=== PATIENT | female | born 1930 | race Caucasian/White ===

== ENCOUNTER 2018-08-13 17:37 | Emergency (ER) | payer MEDICARE ==
[~2018-08-13] VITALS: Ht 162.6 cm; Wt 56.2 kg
[~2018-08-13 17:37] MED LIST: ALEN70; LEVSOD75 PO; LORA10ER PO; PENVK500 PO; PRED10 PO; PRED20 PO; RANI150 PO
[2018-08-13 18:42] LABS: BASOPHILS ABSOLUTE AUTO 0.03 K/mm3 (0.00-0.23); BASOPHILS PERCENT AUTO 1 % (0-2); EOSINOPHILS ABSOLUTE AUTO 0.05 K/mm3 (0.00-0.68); EOSINOPHILS PERCENT AUTO 1 % (0-6); Hematocrit 39.5 % (33.0-51.0); Hemoglobin 12.9 g/dL (11.5-16.0); IMMATURE GRAN ABSOLUTE AUTO 0.01 K/mm3 (0.00-0.10); IMMATURE GRAN PERCENT AUTO 0 % (0-1); LYMPHOCYTES ABSOLUTE AUTO 1.66 K/mm3 (0.84-5.20); LYMPHOCYTES PERCENT AUTO 30 % (21-46); MONOCYTES ABSOLUTE AUTO 0.75 K/mm3 (0.16-1.47); MONOCYTES PERCENT AUTO 14 % (4-13); Mean Corpuscular HGB 32.2 pg (26.0-34.0); Mean Corpuscular HGB Conc 32.7 g/dL (31.5-36.5); Mean Corpuscular Volume 99 fL (80-100); Mean Platelet Volume 9.7 fL (9.1-12.4); NEUTROPHILS ABSOLUTE AUTO 2.99 K/mm3 (1.96-9.15); NEUTROPHILS PERCENT AUTO 55 % (41-73); Platelet Count 195 K/mm3 (150-400); RDW Coefficient Variation 13.8 % (11.7-14.2); RDW Standard Deviation 50.4 fL (35.1-46.3); Red Blood Cell Count 4.01 M/mm3 (3.80-5.20); White Blood Cell Count 5.49 K/mm3 (4.00-11.30)
[2018-08-13 19:06] LABS: Alanine Aminotransfer (ALT/SGP 39 U/L (12-78); Albumin, Blood 3.9 g/dL (3.4-5.0); Albumin/Globulin Ratio 0.9 (0.8-1.8); Alk Phos 95 U/L (50-136); Anion Gap 6 mmol/L (6-16); Aspartate Aminotrans (AST/SGOT 33 U/L (12-37); Bilirubin, Total 0.6 mg/dL (0.1-1.0); Blood Urea Nitrogen 28 mg/dL (8-24); Bun/Creatinine Ratio 36.3 (12.0-20.0); CO2, Blood 28 mmol/L (21-32); Calcium, Blood 9.1 mg/dL (8.5-10.1); Chloride, Blood 101 mmol/L (98-108); Creatinine, Blood 0.77 mg/dL (0.40-1.00); Globulin, Blood 4.3 g/dL (2.2-4.0); Glomerular Filtration Rate >60 (60-); Glucose, Blood 96 mg/dL (70-99); Potassium, Blood 4.3 mmol/L (3.5-5.5); Sodium, Blood 135 mmol/L (136-145); Total Protein, Blood 8.2 g/dL (6.4-8.2)
== END 2018-08-13 21:11 | disposition home or self-care (01) ==
LOC: ER 17:37
PROVIDERS: Emergency Medicine
DX: R60.0 Localized edema (principal); E03.9 Hypothyroidism, unspecified; Z88.5 Allergy status to narcotic agent; Z91.018 Allergy to other foods; Z79.899 Other long term (current) drug therapy
CPT/HCPCS: 36415; 80053; 85025; 93971; 99284-25

== ENCOUNTER 2019-11-27 15:18 | Inpatient (IN) | payer MEDICARE ==
[~2019-11-27] VITALS: Ht 167.6 cm; Wt 46.6 kg
[2019-11-27 16:44] LABS: BASOPHILS ABSOLUTE AUTO 0.02 K/mm3 (0.00-0.23); BASOPHILS PERCENT AUTO 0 % (0-2); EOSINOPHILS ABSOLUTE AUTO 0.02 K/mm3 (0.00-0.68); EOSINOPHILS PERCENT AUTO 0 % (0-6); Hematocrit 37.8 % (33.0-51.0); Hemoglobin 12.3 g/dL (11.5-16.0); IMMATURE GRAN ABSOLUTE AUTO 0.03 K/mm3 (0.00-0.10); IMMATURE GRAN PERCENT AUTO 0 % (0-1); LYMPHOCYTES ABSOLUTE AUTO 0.81 K/mm3 (0.84-5.20); LYMPHOCYTES PERCENT AUTO 9 % (21-46); MONOCYTES ABSOLUTE AUTO 1.21 K/mm3 (0.16-1.47); MONOCYTES PERCENT AUTO 13 % (4-13); Mean Corpuscular HGB 31.7 pg (26.0-34.0); Mean Corpuscular HGB Conc 32.5 g/dL (31.5-36.5); Mean Corpuscular Volume 97 fL (80-100); Mean Platelet Volume 9.6 fL (9.1-12.4); NEUTROPHILS ABSOLUTE AUTO 7.45 K/mm3 (1.96-9.15); NEUTROPHILS PERCENT AUTO 78 % (41-73); Platelet Count 204 K/mm3 (150-400); RDW Coefficient Variation 13.4 % (11.7-14.2); RDW Standard Deviation 48.1 fL (35.1-46.3); Red Blood Cell Count 3.88 M/mm3 (3.80-5.20); White Blood Cell Count 9.54 K/mm3 (4.00-11.30)
[2019-11-27 17:08] LABS: Albumin/Globulin Ratio 0.9 (0.8-1.8); Bilirubin, Total 0.9 mg/dL (0.1-1.0); Bun/Creatinine Ratio 26.6 (12.0-20.0); Calcium, Blood 9.2 mg/dL (8.5-10.1); Creatinine, Blood 1.28 mg/dL (0.40-1.00); Globulin, Blood 4.3 g/dL (2.2-4.0); Potassium, Blood 4.2 mmol/L (3.5-5.5); Total Protein, Blood 8.3 g/dL (6.4-8.2)
--- NOTE | 2019-11-27 17:59 | NUR ---
PT ARRIVED TO UNIT AT APROX 1755 FROM ER. TRANSFERED TO BED USING SLIDER SHEET. R LEG SHORTENED AND EXTERNALLY ROTATED, CAP REFILL WNL AND PT DENIES N/T. REPORTS PAIN 2/10 AT THIS TIME AND STATES IT IS TOLERABLE. PT TO BE NPO AFTER MIDNIGHT FOR OR TOMORROW. ORTHO CONSULT WAS CALLED TO DR ARAIZA BY ER .
[2019-11-27 19:53] LABS: International Normalized Ratio 1.01; Prothrombin Time Results 10.8 Sec (9.7-11.5)
--- NOTE | 2019-11-28 04:12 | NUR ---
SHIFT SUMMARY: NORMAN RESTED COMFORTABLY FOR MOST OF THE NIGHT. SHE WAS MADE NPO AT MIDNIGHT, TOLERATED PO INTAKE VERY WELL PRIOR. IV TO HER RIGHT FOREARM PATENT, IV FLUIDS RUNNING. SHE IS ALERT AND ORIENTED, ABLE TO MAKE HER NEEDS KNOWN. SHE IS PLEASANT AND COOPERATIVE. ORA. SHE HAS HAD ONE DOSE OF APAP THIS SHIFT WHICH SHE REPORTS HAS KEPT HER PAIN TOLERABLE. SHE IS LYING COMFORTABLY IN BED WITH HER CALL LIGHT IN REACH, WHICH SHE USES APPROPRIATELY.
[2019-11-28 05:06] LABS: Hematocrit 28.4 % (33.0-51.0); Hemoglobin 9.5 g/dL (11.5-16.0); Mean Corpuscular HGB Conc 33.5 g/dL (31.5-36.5); Mean Corpuscular Volume 96 fL (80-100); Mean Platelet Volume 9.9 fL (9.1-12.4); Platelet Count 156 K/mm3 (150-400); RDW Coefficient Variation 13.3 % (11.7-14.2); RDW Standard Deviation 46.7 fL (35.1-46.3); Red Blood Cell Count 2.97 M/mm3 (3.80-5.20); White Blood Cell Count 7.74 K/mm3 (4.00-11.30)
[2019-11-28 05:38] LABS: Bun/Creatinine Ratio 24.8 (12.0-20.0); Creatinine, Blood 0.97 mg/dL (0.40-1.00); Potassium, Blood 4.3 mmol/L (3.5-5.5)
--- NOTE | 2019-11-28 12:57 | NUR ---
11/28/19 1257 Karoline Carroll PT ENTERED OR WITH PINK CATHETER
--- NOTE | 2019-11-28 18:36 | NUR ---
SHIFT SUMMARY PT POD 0 R HORACIO HIP POSTERIOR. AQUACEL DRESSING C/D/I, DENIES N/T IN RLE. SCD'S IN PLACE. RATES PAIN 210. PINK PATENT, DRAINING CLEAR YELLOW URINE. POST-OP VS WNL.
[2019-11-29 04:12] LABS: BASOPHILS ABSOLUTE AUTO 0.02 K/mm3 (0.00-0.23); BASOPHILS PERCENT AUTO 0 % (0-2); EOSINOPHILS PERCENT AUTO 0 % (0-6); Hematocrit 28.1 % (33.0-51.0); IMMATURE GRAN ABSOLUTE AUTO 0.03 K/mm3 (0.00-0.10); IMMATURE GRAN PERCENT AUTO 0 % (0-1); LYMPHOCYTES ABSOLUTE AUTO 1.06 K/mm3 (0.84-5.20); LYMPHOCYTES PERCENT AUTO 11 % (21-46); MONOCYTES ABSOLUTE AUTO 1.27 K/mm3 (0.16-1.47); MONOCYTES PERCENT AUTO 13 % (4-13); Mean Corpuscular HGB 31.4 pg (26.0-34.0); Mean Corpuscular Volume 98 fL (80-100); Mean Platelet Volume 9.6 fL (9.1-12.4); NEUTROPHILS ABSOLUTE AUTO 7.35 K/mm3 (1.96-9.15); NEUTROPHILS PERCENT AUTO 76 % (41-73); Platelet Count 144 K/mm3 (150-400); RDW Coefficient Variation 13.2 % (11.7-14.2); Red Blood Cell Count 2.87 M/mm3 (3.80-5.20); White Blood Cell Count 9.73 K/mm3 (4.00-11.30)
[2019-11-29 04:29] LABS: Albumin, Blood 2.5 g/dL (3.4-5.0); Anion Gap 5 mmol/L (6-16); Blood Urea Nitrogen 22 mg/dL (8-24); Bun/Creatinine Ratio 23.4 (12.0-20.0); CO2, Blood 27 mmol/L (21-32); Calcium, Blood 7.6 mg/dL (8.5-10.1); Chloride, Blood 101 mmol/L (98-108); Creatinine, Blood 0.94 mg/dL (0.40-1.00); Glomerular Filtration Rate 60 (60-); Glucose, Blood 108 mg/dL (70-99); Phosphorus, Blood 2.9 mg/dL (2.5-4.9); Potassium, Blood 4.2 mmol/L (3.5-5.5); Sodium, Blood 133 mmol/L (136-145)
--- NOTE | 2019-11-29 06:30 | NUR ---
SHIFT SUMMARY POD 1 S/P RIGHT HORACIO POSTERIOR HIP. AQUACEL DRESSING C/D/I WITH NO DRAINAGE NOTED. ABX AND IVF ADMINISTERED PER ORDERS. PAIN MANAGED WITH PO MEDICATION. TOLERATING PO INTAKE. PINK IN PLACE DRAINING CLEAR YELLOW URINE. CURRENTLY RESTING IN BED WITH CALL LIGHT WITHIN REACH. WILL CONT TO MONITOR AND GIVE REPORT TO ON COMING RN.
--- NOTE | 2019-11-29 11:11 | NUR ---
APRYL REMOVED AT 0900 THIS AM.
--- NOTE | 2019-11-29 18:00 | NUR ---
SHIFT SUMMARY PT HAS BEEN A 1 PERSON ASSIST WHEN UP WITH STAFF. PT TOLERATED WORKING WITH PT AND OT TODAY. PINK CATHETER WAS REMOVED THIS MORNING AND PT HAS BEEN ABLE TO VOID SINCE. VSS. WILL MONITOR UNTIL REPORT TO ONCOMING RN.
[2019-11-30 04:08] LABS: BASOPHILS ABSOLUTE AUTO 0.02 K/mm3 (0.00-0.23); BASOPHILS PERCENT AUTO 0 % (0-2); EOSINOPHILS ABSOLUTE AUTO 0.03 K/mm3 (0.00-0.68); EOSINOPHILS PERCENT AUTO 0 % (0-6); Hematocrit 28.9 % (33.0-51.0); Hemoglobin 9.4 g/dL (11.5-16.0); IMMATURE GRAN ABSOLUTE AUTO 0.03 K/mm3 (0.00-0.10); IMMATURE GRAN PERCENT AUTO 0 % (0-1); LYMPHOCYTES ABSOLUTE AUTO 0.96 K/mm3 (0.84-5.20); LYMPHOCYTES PERCENT AUTO 12 % (21-46); MONOCYTES ABSOLUTE AUTO 1.12 K/mm3 (0.16-1.47); MONOCYTES PERCENT AUTO 14 % (4-13); Mean Corpuscular HGB 31.4 pg (26.0-34.0); Mean Corpuscular HGB Conc 32.5 g/dL (31.5-36.5); Mean Corpuscular Volume 97 fL (80-100); Mean Platelet Volume 9.7 fL (9.1-12.4); NEUTROPHILS ABSOLUTE AUTO 5.73 K/mm3 (1.96-9.15); NEUTROPHILS PERCENT AUTO 73 % (41-73); Platelet Count 163 K/mm3 (150-400); RDW Coefficient Variation 13.2 % (11.7-14.2); RDW Standard Deviation 46.9 fL (35.1-46.3); Red Blood Cell Count 2.99 M/mm3 (3.80-5.20); White Blood Cell Count 7.89 K/mm3 (4.00-11.30)
--- NOTE | 2019-11-30 05:25 | NUR ---
SHIFT SUMMARY PT IS A/O X4. PT HAS BEEN UP TO BEDSIDE COMMODE THIS SHIFT AND USES WALKER AND 1X ASSIST. PT HAS HAD SOME INCONTINENCE AND IS NOW WEARING A BRIEF. BEDDING WAS CHANGED THIS SHIFT. TOLERATING PO INTAKE AND VOIDING. PT HAS REPORTED NO PAIN BUT DID HAVE SLIGHT FEVER; GIVEN TYLENOL PER ORDERS. PT HAS HAD SOME REST THROUGHOUT THE NIGHT. ASSISTED WITH ADL'S PRN.
--- NOTE | 2019-11-30 10:43 | NUR ---
DR. ARCEO NOTIFIED THAT PT HAS HAD A FEVER OVERNIGHT. WILL CONTINUE TO MONITOR.
--- NOTE | 2019-11-30 17:21 | NUR ---
SHIFT SUMMARY PAIN HAS BEEN MINIMAL THIS SHIFT AND HAS BEEN MANAGED WITH PO PAIN MEDICATION. PT IS A 1 PERSON ASSIST WHEN OOB, SHE USES A GAIT BELT AND WALKER. PT WOULD STILL LIKE TO GO HOME INSTEAD OF TO REHAB, SHE LIVES ALONE AND SNF HAS BEEN RECOMMENDED. PT HAD A FEVER THIS MORNING. SHE REPORED COUGHING UP YELLOW SPUTUM THIS AFTER NOON. PT WAS EDUCATED TO USE INCENTIVE SPIROMETER, SHE HAS BEEN COMPLIANT WITH USING IT. VSS. WILL MONITOR UNTIL REPORT TO ONCOMING RN.
[2019-12-01 00:31] LABS: Source, Urine Clean Catch
[2019-12-01 00:40] LABS: Appearance, Urine Clear (Clear); Bilirubin, Urine Neg (Neg); Blood, Urine 1+ (Neg); Color, Urine Yellow (P-Yellow); Glucose Qualitative, Urine Neg (Neg); Ketones, Urine Neg (Neg); Leukocyte Esterase, Urine Neg (Neg); Nitrite, Urine Neg (Neg); Protein, Urine 1+ (Neg); Urobilinogen, Urine NORM (Normal)
[2019-12-01 00:52] LABS: Bacteria Few /hpf; Red Blood Cells, Urine 0-2 /hpf (0-2); Squamous Epithelial Cells Few /hpf (Few); White Blood Cells, Urine 0-2 /hpf (0-5)
[2019-12-01 04:01] LABS: BASOPHILS ABSOLUTE AUTO 0.02 K/mm3 (0.00-0.23); BASOPHILS PERCENT AUTO 0 % (0-2); EOSINOPHILS ABSOLUTE AUTO 0.07 K/mm3 (0.00-0.68); EOSINOPHILS PERCENT AUTO 1 % (0-6); Hematocrit 27.5 % (33.0-51.0); Hemoglobin 8.8 g/dL (11.5-16.0); IMMATURE GRAN ABSOLUTE AUTO 0.02 K/mm3 (0.00-0.10); IMMATURE GRAN PERCENT AUTO 0 % (0-1); LYMPHOCYTES ABSOLUTE AUTO 1.05 K/mm3 (0.84-5.20); LYMPHOCYTES PERCENT AUTO 14 % (21-46); MONOCYTES ABSOLUTE AUTO 0.94 K/mm3 (0.16-1.47); MONOCYTES PERCENT AUTO 13 % (4-13); Mean Corpuscular HGB 31.5 pg (26.0-34.0); Mean Corpuscular Volume 99 fL (80-100); Mean Platelet Volume 9.6 fL (9.1-12.4); NEUTROPHILS ABSOLUTE AUTO 5.17 K/mm3 (1.96-9.15); NEUTROPHILS PERCENT AUTO 71 % (41-73); Platelet Count 174 K/mm3 (150-400); RDW Coefficient Variation 13.2 % (11.7-14.2); RDW Standard Deviation 47.9 fL (35.1-46.3); Red Blood Cell Count 2.79 M/mm3 (3.80-5.20); White Blood Cell Count 7.27 K/mm3 (4.00-11.30)
[2019-12-01 04:20] LABS: Alanine Aminotransfer (ALT/SGP 71 U/L (12-78); Albumin, Blood 2.2 g/dL (3.4-5.0); Albumin/Globulin Ratio 0.6 (0.8-1.8); Alk Phos 107 U/L (50-136); Anion Gap 5 mmol/L (6-16); Aspartate Aminotrans (AST/SGOT 79 U/L (12-37); Bilirubin, Total 0.6 mg/dL (0.1-1.0); Blood Urea Nitrogen 24 mg/dL (8-24); Bun/Creatinine Ratio 37.2 (12.0-20.0); CO2, Blood 27 mmol/L (21-32); Calcium, Blood 8.2 mg/dL (8.5-10.1); Chloride, Blood 105 mmol/L (98-108); Creatinine, Blood 0.65 mg/dL (0.40-1.00); Globulin, Blood 3.6 g/dL (2.2-4.0); Glomerular Filtration Rate >60 (60-); Glucose, Blood 99 mg/dL (70-99); Potassium, Blood 3.8 mmol/L (3.5-5.5); Sodium, Blood 137 mmol/L (136-145); Total Protein, Blood 5.8 g/dL (6.4-8.2)
[2019-12-01 04:25] LABS: Percent Saturation 10.1 % (15.0-50.0)
--- NOTE | 2019-12-01 04:44 | NUR ---
SHIFT SUMMARY PT IS A/O X4. SHE HAS BEEN UP TO THE COMMODE SEVERAL TIMES THIS SHIFT WITH WALKER AND 1X ASSIST. TOLERATING PO INTAKE, VOIDING, AND HAVING BM'S. PT HAS REPORTED MILD DISCOMFORT WITH MOVEMENT, BUT OTHERWISE HAS REPORTED BEING COMFORTABLE. ASSISTED WITH ADL'S PRN.
--- NOTE | 2019-12-01 16:57 | NUR ---
SHIFT SUMMARY PT DID VERY WELL WITH THERAPIES TODAY. PAIN WELL MANAGED. AQUACEL WNL. EATING, DRINKING, VOIDING, AND STOOLING WELL. PLAN FOR SNF TOMORROW.
--- NOTE | 2019-12-02 06:25 | NUR ---
SHIFT SUMMARY: NORMAN HAS RESTED INTERMITTENTLY THROUGHOUT THE NIGHT. SHE REPORTS THAT SHE FEELS SOME SMALL URINARY INCONTINENCE FROM TIME TO TIME. SHE IS USING THE BEDSIDE COMMODE WITHOUT DIFFICULTY. SHE IS A 1 PERSON ASSIST. SHE REPORTS THAT HER PAIN IS TOLERABLE. SHE HAS DENIED THE NEED FOR ANY PAIN MEDICATIONS THIS SHIFT. SHE IS TOLERATING PO INTAKE WELL. SHE IS ANXIOUS ABOUT DISCHARGE TO A SNF TODAY, MANY QUESTIONS WERE ANSWERED. SHE IS LYING COMFORTABLY IN BED WITH HER CALL LIGHT IN REACH.
--- NOTE | 2019-12-02 12:07 | NUR ---
DISCHARGE SUMMARY PT A&OX4, VSS, TRANSPORT PLANNED FOR [facility]. IV DC'D. REPORT CALLED TO JUSTIN. ALL PERSONAL BELONGINGS PACKED AND READY FOR TRANSPORT.
== END 2019-12-02 12:40 | DRG 470 ==
LOC: ER 15:18 → SURS 16:57
PROVIDERS: Internal Medicine; Orthopaedic Surgery; Physician Assistant; ADMIT Internal Medicine
PROC: 0SRR0JA Replacement of Right Hip Joint, Femoral Surface with Synthetic Substitute, Uncemented, Open Approach (ICD-10-PCS; principal; 2019-11-28 10:30)
DX: S72.011A Unspecified intracapsular fracture of right femur, initial encounter for closed fracture (principal); N17.9 Acute kidney failure, unspecified; E87.1 Hypo-osmolality and hyponatremia; W19.XXXA Unspecified fall, initial encounter; E03.9 Hypothyroidism, unspecified; M81.0 Age-related osteoporosis without current pathological fracture; E86.0 Dehydration; G47.33 Obstructive sleep apnea (adult) (pediatric); D64.9 Anemia, unspecified; Z85.3 Personal history of malignant neoplasm of breast; Z90.12 Acquired absence of left breast and nipple
CPT/HCPCS: 36415; 51702; 71045; 72170; 73502; 80048; 80053; 80069; 81001; 82728; 83540; 83550; 85025; 85027; 85610; 85730; 86850; 86900; 86901; 88305; 88311; 93005; 93010; 97110; 97116; 97162; 97166; 97530; 97535; 99285-25; A9270; C1776; J0171; J0690; J0735; J1100; J1650; J1885; J2370; J2405; J2704; J2710; J2795; J3010; J7120

== ENCOUNTER 2019-12-14 13:31 | Emergency (ER) | payer MEDICARE ==
[~2019-12-14] VITALS: Ht 162.6 cm; Wt 51.7 kg
== END 2019-12-14 19:56 | disposition home or self-care (01) ==
LOC: ER 13:31
DX: T84.020A Dislocation of internal right hip prosthesis, initial encounter (principal); E03.9 Hypothyroidism, unspecified; M19.90 Unspecified osteoarthritis, unspecified site; G47.33 Obstructive sleep apnea (adult) (pediatric); Z79.899 Other long term (current) drug therapy; Z88.5 Allergy status to narcotic agent; Z91.018 Allergy to other foods
CPT/HCPCS: 27265; 73501; 73502; 96374-59; 99152; 99283-25; J2704; J3010; J7030

== ENCOUNTER 2019-12-16 18:23 | Emergency (ER) | payer MEDICARE ==
[~2019-12-16] VITALS: Ht 162.6 cm; Wt 51.7 kg
[2019-12-16] MEDS ORDERED: HYDR1TAB94 PO (21:12)
== END 2019-12-16 21:55 | disposition home or self-care (01) ==
LOC: ER 18:23
DX: G89.18 Other acute postprocedural pain (principal); M25.551 Pain in right hip; E03.9 Hypothyroidism, unspecified; M81.0 Age-related osteoporosis without current pathological fracture; G47.30 Sleep apnea, unspecified; Z85.3 Personal history of malignant neoplasm of breast; Z96.641 Presence of right artificial hip joint
CPT/HCPCS: 27265; 73501; 73502; 96374-59; 96375-59; 99152; 99283-25; J2405; J2704; J3010; J7030